=== PATIENT | female | born 1985 | race Caucasian/White ===

== ENCOUNTER 2019-08-29 12:13 | Emergency (ER) | payer OTHER ==
[2019-08-29 12:46] VITALS: BP 130/80
--- NOTE | 2019-08-29 12:46 | UC ---
FLU HPI - HPI Summary HPI Summary: 34 yo female presents with cold symptoms. She tells me that over the last 10 days she has been having sinus congestion, sore throat, and dry cough. She has been taking dayquill intermittently with no change. Last night she felt some pain with deep breaths that continues into today. More fatigued over the last week. She states a co-worker of hers had "walking pneumonia" and pt is admittedly anxious about this today. She denies fever, chills, SOB, chest pain, rash, dizziness, headaches, abdominal pain, n/v. Denies personal hx of any cardiac issues. States she did have Grave's disease in high school that "resolved on it's own" -- thyroid has not been checked in years. - History of Current Complaint Stated Complaint: SORE THROAT CHEST CONGESTION Time Seen by Provider: 08/29/19 12:45 Hx Obtained From: Patient Hx Last Menstrual Period: Mirena - 6 months ago Onset/Duration: Gradual Onset Severity Currently: Mild Severity Initially: Mild Pain Intensity: 2 Pain Scale Used: 0-10 Numeric - Allergy/Home Medications Allergies/Adverse Reactions: Allergies Allergy/AdvReac Type Severity Reaction Status Date / Time cefaclor [From [facility]] Allergy Intermediate Hives Verified 08/29/19 12:47 PMH/Surg Hx/FS Hx/Imm Hx - Additional Past Medical History Additional PMH: Garve's disease in high school - Surgical History Surgical History: Yes Surgery Procedure, Year, and Place: tonsillectomy at 7 years old\\. csection x1 - Family History Known Family History: Positive: None - Social History Occupation: Employed Full-time Lives: With Family Alcohol Use: Occasionally Substance Use Type: None Smoking Status (MU): Never Smoked Tobacco Review of Systems All Other Systems Reviewed And Are Negative: No Constitutional: Positive: Fatigue Skin: Positive: Negative Eyes: Positive: Negative ENT: Positive: Sore Throat, Nasal Discharge, Sinus Congestion Respiratory: Positive: Cough Cardiovascular: Positive: Negative Gastrointestinal: Positive: Negative Neurological/Mental Status: Positive: Negative Psychological: Positive: Negative Physical Exam - Summary Physical Exam Summary: GENERAL: NAD. WDWN. No pain distress. SKIN: No rashes, sores, lesions, or open wounds. HEENT: Head: AT/NC Eyes: EOM intact. Conjunctiva clear without inflammation or discharge. Ears: Hearing grossly normal. TMs intact, no bulging, erythema, or edema. Nose: Nasal mucosa pink and moist. NTTP maxillary and frontal sinus. Throat: Posterior oropharynx without exudates, erythema, or tonsillar enlargement. Uvula midline. NECK: Supple. Nontender. No lymphadenopathy. CHEST: CTAB. No r/r/w. No accessory muscle use. Breathing comfortably and in no distress. CV: RRR. Occasional skipped beat vs PVC? APC? Pulses intact. Cap refill < 2seconds NEURO: Alert. PSYCH: Age appropriate behavior. Triage Information Reviewed: Yes Vital Signs: Vital Signs: Temp Pulse Resp BP Pulse Ox 98.2 F 59 19 130/80 100 08/29/19 12:42 08/29/19 12:42 08/29/19 12:42 08/29/19 12:42 08/29/19 12:42 Vital Signs Reviewed: Yes Diagnostics - Radiology CXR Radiology Interpretation Completed By: Radiologist Summary of Radiographic Findings: IMPRESSION: NO EVIDENCE FOR ACTIVE CARDIOPULMONARY DISEASE. - EKG Summary of EKG Findings: EKG 56bpm sinus bradycardia with PVCs. No STEMI as read by Dr. Stanley. Flu Course/Dx - Course Course Of Treatment: EKG as above. CXR as above. Discussed results with pt. Wells score 0. Will draw for CBC, CMP, and TSH and have pt f/u with PCP within 1 week. Advised to go to ED if symptoms worsen. - Differential Dx/Diagnosis Provider Diagnosis: Fatigue, Cough, PVC (premature ventricular contraction) Discharge ED - Sign-Out/Discharge Documenting (check all that apply): Patient Departure All imaging exams completed and their final reports reviewed: Yes - Discharge Plan Condition: Stable Disposition: HOME Referrals: Lashay Casanova MD [Primary Care Provider] - 1 Week Additional Instructions: If you develop a fever, shortness of breath, chest pain, new or worsening symptoms - please call your PCP or go to the ED immediately. We have drawn labwork to further evaluate your symptoms - I recommend you follow up with your primary doctor within 1 week for a recheck - Billing Disposition and Condition Condition: STABLE Disposition: Home - Attestation Statements Provider Attestation: I was available for consult. This patient was seen by the [facility]. The patient was not presented to, seen by, or examined by me. -Gualberto
[2019-08-29 19:21] LABS: ABS Eosinophils 0.1 10^3/ul (0-0.6); ABS Lymphocytes 2.2 10^3/ul (1.0-4.8); ABS Monocytes 0.6 10^3/ul (0-0.8); ABS Neutrophils 5.8 10^3/ul (1.5-7.7); Eosinophil % 1.5 %; Hematocrit 42 % (35-47); Hemoglobin 14.6 g/dL (12.0-16.0); Lymphocyte % 24.8 %; Mean Corpuscular HGB Conc 35 g/dL (31-36); Mean Corpuscular Hemoglobin 32 pg (27-31); Mean Corpuscular Volume 93 fL (80-97); Mean Platelet Volume 8.2 fL (7.4-10.4); Nucleated Red Blood Cells % 0.1; Platelet Count 388 10^3/uL (150-450); Red Blood Count 4.54 10^6 /uL (3.70-4.87); Red Cell Distribution Width 13 % (10-15); White Blood Count 8.7 10^3/uL (3.5-10.8)
[2019-08-29 19:27] LABS: Albumin 4.8 g/dL (3.2-5.2); Calcium 9.5 mg/dL (8.6-10.3); Potassium 4.1 mmol/L (3.5-5.0); Total Bilirubin 0.6 mg/dL (0.2-1.0)
[2019-08-29 19:32] LABS: Albumin/Globulin Ratio 1.8 (1-3); BUN/Creatinine Ratio 16.9 (8-20); EGFR African American 102.6 (>60); EGFR Non-African American 84.8 (>60); Globulin 2.7 g/dL (2-4); Total Protein 7.5 g/dL (6.4-8.9)
[2019-08-29 19:50] LABS: TSH (Thyroid Stimulating Horm) 5.12 mcIU/mL (0.34-5.60)
--- NOTE | 2019-08-30 07:13 | UC ---
- Progress Note Progress Note: Labs reviewed. Normal blood count, normal white count, chemistries and thyroid function. Please inform patient that labs are normal. Course/Dx - Diagnoses Provider Diagnoses: Fatigue, Cough, PVC (premature ventricular contraction) Discharge ED - Sign-Out/Discharge Documenting (check all that apply): Post-Discharge Follow Up All imaging exams completed and their final reports reviewed: Yes - Discharge Plan Condition: Stable Disposition: HOME Referrals: Lashay Casanova MD [Primary Care Provider] - 1 Week Additional Instructions: If you develop a fever, shortness of breath, chest pain, new or worsening symptoms - please call your PCP or go to the ED immediately. We have drawn labwork to further evaluate your symptoms - I recommend you follow up with your primary doctor within 1 week for a recheck - Billing Disposition and Condition Condition: STABLE Disposition: Home
== END 2019-08-29 13:53 | disposition home or self-care (01) ==
LOC: UCEAST 12:13
DX: R53.83 Other fatigue (principal); R05 Cough; I49.3 Ventricular premature depolarization; Z88.1 Allergy status to other antibiotic agents
CPT/HCPCS: 36415; 71046; 80053; 84443; 85025; 93005; 99211; G0463